=== PATIENT | male | born 1930 | race Caucasian/White ===

== ENCOUNTER 2016-09-05 12:46 | Emergency (ER) | payer MEDICARE, OTHER ==
[~2016-09-05] VITALS: Ht 177.8 cm; Wt 75.0 kg
[~2016-09-05 12:46] MED LIST: CITA20TA11 PO; CLOP75TA3 PO; FAMO20TA4 PO; GLYB1.253 PO; LISI40TA PO; METF-496 PO; METO25TA6 PO; SIMV10TA4 PO
[2016-09-05 12:48] VITALS: BP 154/87; PULSE 72; RESP 16; O2SAT 98
--- NOTE | 2016-09-05 12:55 | ED.REPORT ---
HPI-Hip/Pelvis Prob/Inj Date of Service Sep 05, 2016 ED Provider: Layton Deras MD, Pam Martinez MD 85 y/o male with a hx of DM, CABG (with pacemaker) and CVA presents to the ED complaining of right hip pain, onset 3 days ago. The pt denies any fall, trauma or other injury to the hip. He states he has never been in this much pain before. The pain is exacerbated with minimal movement and resolves at rest. Associated sx include difficulty walking. He is unable to slide his right foot forward due to the pain. He denies fever, chills, diaphoresis, dysuria, lack of appetite, lower extremity numbness, weakness in right foot, pain on the left hip and left leg. The pt has chronic edema in both his legs. The pt recently lost 17 pounds unintentionally. He states "I can't eat much because my diabetes is so bad." Nursing Notes Stated Complaint: RIGHT HIP PAIN Chief Complaint: Extremity Trauma Nursing Notes Reviewed: Yes ([employer], [employer] not reconciled) Allergies: Coded Allergies: No Known Allergies (Verified , 09/05/16) Uncoded Allergies: CLOTH TAPE (Allergy, Unknown, BLISTERS, 02/10/07) Scheduled Citalopram (Citalopram) 20 Mg Tablet 20 MG PO DAILY Clopidogrel Bisulfate (Plavix) 75 Mg Tablet 75 MG PO DAILY Famotidine (Famotidine) 20 Mg Tablet 20 MG PO DAILY Glyburide (Glyburide) 1.25 Mg Tablet 5 MG PO BIDAC Lisinopril (Lisinopril) 40 Mg Tablet 40 MG PO DAILY Metformin ER (Metformin ER) 1,000 Mg Tab.er.24 1,000 MG PO BIDWM Metoprolol Tartrate (Metoprolol Tartrate) 25 Mg Tablet 50 MG PO BID Simvastatin (Simvastatin) 10 Mg Tablet 20 MG PO AM General Time Seen by Provider: 12:56 Chief Complaint Hip pain right Hx Obtained From: Patient Arrived By: Walk-in Onset Occurred: 3 days ago Symptom Duration: Since onset Progression Since Onset: Unchanged Quality: Painful Severity: Current: Severe Severity: Maximum: Severe Recent Healthcare: No recent doctor visit Similar Sx Previous: No Past Medical History Past Medical History HTN Diabetes hyperlipidemia CABG CVA Past Surgical History 4-way bypass Smoking History Unknown if Ever Smoker Social History Other Social History: Good social support Ambulatory Status Independent Review of Systems Denies: lack of appetite. Constitutional: Denies: Chills, Fever Musculoskeletal: Reports: Joint pain (right hip) Skin: Denies Diaphoresis Neurologic: Denies: Numbness (lower extremity) Complete sys rev & neg: except as marked. Cardiovascular: Reports: Edema (chronic) Female: Denies: Dysuria Physical Exam Initial Vital Signs Vital Signs (First) Date Time Temp Pulse Resp B/P Pulse Ox O2 Delivery O2 Flow Rate FiO2 09/05/16 12:48 36.6 72 16 154/87 98 Room Air Initial VS: Reviewed, Vital signs normal Head / Eyes: Atraumatic, Normocephalic Neck: Supple, Non-tender, Full range of motion Respiratory: Breath sounds normal, No respiratory distress Cardiovascular: Regular rate & rhythm, Heart sounds normal, Intact distal pulses Abdomen / GI: Soft, Non-tender Upper Extremities: Vascular intact, Neuro intact, No swelling, No tenderness Skin: Warm, Dry, No cyanosis Neurologic: Alert, Oriented, Nonfocal Lower Extremity / Pelvis / MS: Atraumatic, Non-tender, No deformity, Neurologic intact, Vascular intact Pain with internal and external rotation of hip and with flexion of the hip. Right leg in unna boot. Reports he can't lift the leg, secondary to pain. General/Constitutional: Awake, Alert, No acute distress, Well appearing, Cooperative Ankle / Foot: Atraumatic, Full range of motion, No deformity, Neurologic intact , Vascular intact Normal plantar and dorsal flexion Interpretation & Diagnostics Lab Results Interpretation Result Diagram: 09/05/16 1507 09/05/16 1507 Test 09/05/16 14:27 09/05/16 15:07 Urine Color Yellow (YELLOW) Urine Appearance Hazy (CLEAR,HAZY) Urine pH 8.5 (5.0-8.0) Urine Specific [place] 1.015 (1.003-1.035) Urine Protein Negativemg/dL (NEG,TRACE) Urine Glucose (UA) 1000mg/dL (NEGATIVE) Urine Ketones Negativemg/dL (NEGATIVE) Urine Occult Blood Negative (NEGATIVE) Urine Nitrite Negative (NEGATIVE) Urine Bilirubin Negative (NEGATIVE) Urine Urobilinogen Normalmg/dL (NORMAL) Urine Leukocyte Esterase Negative (NEGATIVE) Urine RBC 0-2/hpf (0-2) Urine WBC 0-5/hpf (0-5) Urine Epithelial Cells Occasional/hpf (NONE-MOD) Urine Crystals Amorphous phosphates Urine Bacteria Few/hpf (NONE-FEW) Urine Hyaline Casts None/lpf (NONE) Urine Granular Casts None seen (NONE SEEN) Urine Waxy Casts None seen (NONE SEEN) Urine Red Blood Cell Casts None seen (NONE SEEN) Urine White Blood Cell Casts None seen (NONE SEEN) Urine Mucus None seen (None Seen) Urine Trichomonas None seen (NONE SEEN) Urine Yeast None (NONE SEEN) Urinalysis Comment None Urine Culture Reflexed Not indicated White Blood Count 6.9th/mm3 (3.8-10.1) Red Blood Count 4.51mil/mm3 (4.40-5.80) Hemoglobin 13.2g/dL (13.8-17.2) Hematocrit 38.5% (41.0-50.0) Mean Corpuscular Volume 85.4fL (81-100) Mean Corpuscular Hemoglobin 29.3pg (27.0-35.0) Mean Corpuscular Hemoglobin Concent 34.3% (32.0-37.0) Red Cell Distribution Width 12.0% (12.3-15.4) Platelet Count 183bil/L (150-400) Neutrophils (%) (Auto) 54.2% (40-74) Lymphocytes (%) (Auto) 33.5% (14-46) Monocytes (%) (Auto) 8.3% (4-12) Eosinophils (%) (Auto) 3.5% (0-5) Basophils (%) (Auto) 0.4% (0-3) Sodium Level 135mEq/L (134-144) Potassium Level 4.1mEq/L (3.5-5.2) Chloride Level 95mEq/L (97-108) Carbon Dioxide Level 27mmol/L (18-29) Blood Urea Nitrogen 14mg/dL (8-27) Creatinine 0.55mg/dL (0.76-1.27) Estimat Glomerular Filtration Rate 150mL/min (>59) Glucose Level 239mg/dL (60-99) Calcium Level 9.5mg/dL (8.5-10.1) Total Bilirubin 0.2mg/dL (0.0-1.2) Aspartate Amino Transf (AST/SGOT) 11U/L (0-50) Alanine Aminotransferase (ALT/SGPT) 14U/L (0-44) Alkaline Phosphatase 69U/L (25-160) Total Protein 6.7g/dL (6.4-8.4) Albumin 4.1g/dL (3.4-5.0) Lipase 19U/L (13-60) X-Ray Interpretation Xray Interpretation: IMPRESSION: Moderate degenerative changes of the right hip without acute fracture. Dictated by: Bro Olivas M.D. on 09/05/2016 at 12:50 Approved by: Bro Olivas M.D. on 09/05/2016 at 12:52 X-Ray Ordered: Hip right Interpretation / Wet Read by: Interpret - Radiologist Re-Eval/Medical Decision Med Decision/Clinical Course This is an 85-year-old male presents with severe right hip pain and worsening since Friday, now the patient reports he is unable to walk secondary to pain. He denies any trauma or injury. Denies prior history of similar symptoms. He does have a history of a unintentional weight loss, denies night sweats or fatigue. He has no pain if he is not moving, but severe pain in the right hip. There is no sciatic component, no numbness or paresthesias, but reports severe pain pointing Lift his right leg secondary to pain. He denies any saddle anesthesia, bowel or bladder discomfort. Exams pleasant, fatigued. He does have pain with movement of the right hip, but no gross deformity. No visible signs of trauma. He is not febrile, toxic or clinically septic. He has no risk factors for septic joint. His right foot is in a dressing for his chronic wound that he is followed by the wound care center reports is been doing well. He can plantarflex and dorsiflex without any difficulty or findings of focal deficit, but has severe pain with any attempt to flex the hip and cannot lift his right leg up's he reports secondary to the pain. Opposite straight leg raise is negative. Plain radiographs are obtained are negative for clear acute pathology. Patient has a pacemaker cannot have an MRI. An IV is being placed and labs drawn and pain control initiated, given his severity and unclear etiology CT imaging is being pursued. He is not febrile, I does not really have findings of overt septic hip, and exact etiology is unclear but given his inability to bear weight is highly concerning-and admission is likely. The patient is being turned over to oncoming provider change of shift pending laboratory and radiographic results and reevaluation Source of Hx: Old records Re-Evaluation/Progress : Time of Eval: 14:00 Re-Evaluation/Progress Note: Rechecked pt. Discussed imaging results, diagnosis and plan to discharge. Pt understands and agrees with the plan. F/U instructions and RTER warning given. All questions addressed. Counseled Regarding: Diagnosis, Need for follow-up, When/why to return to ED Discharge & Departure Shift Change Sign-Out Patient Care Transferred: Yes Discussed Complaint(s): Yes Laboratory Evaluation: Ordered, not yet done Imaging Studies: Ordered, not yet done Care assumed. 85-year-old gentleman presents complaining of severe onset right hip pain for the last 4 days point where he is unable to walk. Medical workup has been done with CT scans of the hip pelvis and lumbar spines showing no significant pathology and lab work showing no significant signs for infection or septic joint. On my exam his knee on the right side is significantly tender. He has a minor effusion, he has significant pain with varus compression. He does not have any tenderness along the medial or lateral collateral ligaments. He can flex the knee to 45 and extend to 170. There is no warmth or redness. Thorough medical workup looking at the hip and higher above at this point I suspect that the acute hip pain is secondary to acute arthritic knee pain. We will suggest that he add a thousand milligrams of Tylenol twice a day to the single Aleve he takes daily. We reviewed the reason to not add narcotics in this elderly unstable gentleman. He agrees completely Recommended his routine chiropractic appointment on Friday, primary care appointment later this coming week to discuss right knee arthritis. And recommend icing the knee as well as medications as above. At this time I see no evidence of primary cancers, metastatic disease, infection, severe erosive arthritis, epidural abscess, sciatica, intra-articular infection. Impression: Primary Impression: Right hip pain Additional Impressions: Weight loss Inability to ambulate due to hip Effusion, right knee Arthritis of right knee Ruled Out: Septic arthritis, Epidural abscess, Pelvic cancer Disposition: Home Discharge Condition All VS Reviewed: Yes Condition: Stable Thank you for entrusting us with your care. Your imaging did not indicate a hip fracture, joint injection, cancers in her pelvis, problems in your lumbar spine that are new or other life-threatening issues at this time. I suspect your hip pain is due to compensating with your hip for your knee pain. Take 2 extra-strength Tylenol in the morning and at night. continue ot use your daily aleve. You may ice your knee for 20 minutes 3-4 times a day to help with your knee pain. Be very careful not to fall. Use your walker. Call your doctor tomorrow morning to schedule an appointment for sometime next week. Keep your routine appointment with your chiropractor. Thank you for being so patient with your long but very thorough emergency room visit today Referrals: Zachary Galdamez DO (PCP) Care Transferred to: Dr. Martinez Care Transferred at: 15:00 Scribe Attestation Portions of this note were transcribed by Yakov Tarango. I, , personally performed the history, physical exam and medical decision- making;I reviewed and confirmed the accuracy of the information in the transcribed note. Signed by Demario Cantor. 09/05/16 15:00 copies to: Zachary Galdamez Matthew F MD Sep 05, 2016 12:55 Yakov Tarango Sep 05, 2016 12:58 Pam Martinez MD Sep 05, 2016 17:43
--- NOTE | 2016-09-05 13:53 | DRSVH ---
PROCEDURE: X-RAY PELVIS W/LAT HIP (RT) ([id number]) INDICATIONS: Right hip pain TECHNIQUE: AP pelvis with lateral view(s) of the right hip(s). COMPARISON: [facility], [facility], PELVIS W/LAT HIP (LT) (PNL), 1 , 7:57. FINDINGS: Bones: No fractures or dislocations. Pelvic ring appears intact. No suspicious bony lesions. Mode rate degenerative changes of the right hip are again evident, not significantly progressed. 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 A left hip arthroplasty is identified, inco mpletely evaluated. Advanced degenerative changes of the imaged lower lumbar spine are present. The re are moderate degenerative changes of the sacroiliac joints. Soft tissues: The visualized bowel gas pattern is normal. No suspicious soft tissue calcifications. Scattered vascular calcifications are present. Metallic densities overlying the prostate are noted . IMPRESSION: Moderate degenerative changes of the right hip without acute fracture. Dictated by: Bro Olivas M.D. on 09/05/2016 at 12:50 Approved by: Bro Olivas M.D. on 09/05/2016 at 12:52
[2016-09-05] MEDS ORDERED: Ondansetron 2 mg/mL 2 mL Inj IVPUSH ONE (14:30)
[2016-09-05] MEDS ORDERED: HYDROmorphone 0.5 mg/0.5 mL iSecure Syringe IVPUSH PRN (14:30)
--- NOTE | 2016-09-05 15:12 | DRSVH ---
PROCEDURE: X-RAY CHEST ONE VIEW, PORTABLE ([id number]) INDICATIONS: weight loss TECHNIQUE: One view of the chest was acquired. COMPARISON: [facility], , CHEST 1VW (PORTABLE), 05/30/2014, 14:20. FINDINGS: Surgical changes and devices: A cardiac pacer/defibrillator apparatus is seen overlying the right colleen st. Postoperative changes related to a prior median sternotomy are noted. Lungs and pleura: No pleural effusions or pneumothorax. Lungs are clear. Mediastinum: Mediastinal contours appear normal. Heart size is normal. There is aortic atheroscler osis. Bones and chest wall: No suspicious bony lesions. Degenerative changes of the imaged spine and righ t shoulder are present. Overlying soft tissues appear unremarkable. IMPRESSION: Stable chest. No acute cardiopulmonary process is evident. Dictated by: Bro Olivas M.D. on 09/05/2016 at 14:09 Approved by: Bro Olivas M.D. on 09/05/2016 at 14:11
[2016-09-05 15:15] LABS: BASOPHILS % (AUTO) 0.4 % (0-3); EOSINOPHILS % (AUTO) 3.5 % (0-5); MONOCYTES % (AUTO) 8.3 % (4-12); Mean Corpuscular Hemoglobin 29.3 pg (27.0-35.0); Mean Corpuscular Volume 85.4 fL (81-100); NEUTROPHILS % (AUTO) 54.2 % (40-74); Platelet Count 183 bil/L (150-400)
--- NOTE | 2016-09-05 15:19 | DRSVH ---
PROCEDURE: CT LUMBAR SPINE WITHOUT CONTRAST ([id number]) INDICATIONS: R hip pain TECHNIQUE: Noncontrast 3 mm thick sections acquired from the T12 level to the sacrum. Sagittal and coronal refo rmats were constructed. For radiation dose reduction, the following was used: automated exposure co ntrol. COMPARISON: None. FINDINGS: Image quality: Diagnostic. Bones: There are 5 lumbar-type vertebral bodies. The lowest intervertebral disk space is designated a s L5-S1. The vertebral body heights are well-maintained without evidence to suggest an acute compress ion fracture. The bone mineralization is within normal limits. Severe multilevel degenerative changes of the lumbar spine are primarily evident involving the lower lumbar facet joints. There also are areas of mild to moderate disc height loss, vacuum disc phenomen on, and diffuse posterior disc bulges. There appear to be areas of central canal and neuroforaminal narrowing. However, characterization of the degree of central canal and neuroforaminal narrowing is difficult on this study without intrathecal contrast. Soft tissues: A right adrenal adenoma is present measuring approximately 2.5 x 1.3 cm that demonstrat es a density value of -5 Hounsfield units (image 23, series 4). There also is a left adrenal adenoma present measuring 2.3 x 1.2 cm (image 29, series 4) with the density value of -2 Hounsfield units. There is aortic atherosclerosis. There is also prominent atherosclerosis involving the celiac, super ior mesenteric, and bilateral renal artery origins. There appeared to be a aneurysms of the bilatera l common iliac arteries (left greater than right). Otherwise, the soft tissues of the imaged abdomen and pelvis are within normal limits. IMPRESSION: 1. No acute fracture of the lumbar spine. 2. Severe multilevel degenerative changes of the lumbar spine are more prominent involving the lower lumbar levels. 3. Bilateral adrenal adenomas. 4. Apparent small to moderate-sized bilateral common iliac artery aneurysms. Dictated by: Bro Olivas M.D. on 09/05/2016 at 14:11 Approved by: Bro Olivas M.D. on 09/05/2016 at 14:17
--- NOTE | 2016-09-05 15:27 | DRSVH ---
PROCEDURE: CT PELVIS WITHOUT CONTRAST ([id number]) INDICATIONS: Right hip pain TECHNIQUE: Noncontrast 3 mm axial sections acquired through the bony pelvis. Additional 3 mm axial sections acq uired through the symptomatic hip joint, with coronal and sagittal reformats. COMPARISON: None. FINDINGS: Image quality: Diagnostic. Bones: There is no acute fracture or dislocation of the right hip. Moderate degenerative changes of the right hip are present with joint space narrowing and moderate-sized marginal osteophytes with are as of degenerative cystic change. Chondrocalcinosis of the hip joint is noted, which is probably deg enerative. Calcific tendinitis of the distal gluteal tendons is noted. Advanced degenerative change s of the included lower lumbar spine are present. There are moderate degenerative changes of the sac roiliac joints and pubis symphysis. Postoperative changes of the left hip are compatible with a tota l left hip arthroplasty. The periprosthetic fractures are evident. Soft tissues: Included the soft tissues of the pelvis demonstrate the bowel loops to be nondilated. Moderate residual stool is identified within the colon and rectum. There is no free fluid, loculated fluid collection or free air. No lymphadenopathy or inguinal hernias are present. The urinary blad mike is normal in size without significant bladder wall thickening. Postoperative changes of the pros ferguson are present with multiple prostatic seeds present. Bilateral common iliac artery aneurysms are identified that measure up to approximately 2.0 cm in diameter (left greater than right). IMPRESSION: 1. Moderate degenerative changes of the right hip without acute fracture. 2. Bilateral common iliac artery aneurysms. Dictated by: Bro Olivas M.D. on 09/05/2016 at 14:18 Approved by: Bro Olivas M.D. on 09/05/2016 at 14:26
[2016-09-05 16:15] LABS: APPEARANCE,URINE HAZY (CLEAR,HAZY); COLOR,URINE YELLOW (YELLOW); OCCULT BLOOD,URINE NEGATIVE (NEGATIVE); PH,URINE 8.5 (5.0-8.0); UROBILINOGEN,URINE NORMAL (NORMAL)
--- NOTE | 2016-09-05 16:17 | NUR ---
Evaluation completed. Please go to "Notes" then click on "Assessments and Notes" (bottom left corner of screen). Then select appropriate discipline tab on top of screen.
[2016-09-05 16:45] VITALS: BP 147/70; PULSE 67; RESP 18; O2SAT 96
[2016-09-05 17:59] VITALS: BP 147/70; PULSE 67; RESP 18; O2SAT 96
== END 2016-09-05 18:02 | disposition home or self-care (01) ==
LOC: SED 12:46
DX: M25.551 Pain in right hip (principal); M25.461 Effusion, right knee; M19.90 Unspecified osteoarthritis, unspecified site; R63.4 Abnormal weight loss; I10 Essential (primary) hypertension; E78.5 Hyperlipidemia, unspecified; E11.9 Type 2 diabetes mellitus without complications; R26.2 Difficulty in walking, not elsewhere classified; Z86.73 Personal history of transient ischemic attack (TIA), and cerebral infarction without residual deficits; Z79.84 Long term (current) use of oral hypoglycemic drugs
CPT/HCPCS: 36415; 71010; 72131; 72192; 73501; 80053; 81000; 83690; 85025; 96374; 96375; 97161; 99285; G8978; G8979; J1170; J2405